=== PATIENT | female | born 1980 | race Caucasian/White ===

== ENCOUNTER 2016-10-27 12:31 | Emergency (ER) | payer BC ==
--- NOTE | 2016-11-02 16:13 | ER ---
ADMIT: 10/27/2016 RM/LOC: ER [facility] MR#: [id number] [id number] [place] [address] Emergency Room Report SEX: F AGE: 36 : 1980 DATE: 10/27/2016 CHIEF COMPLAINT: Ear ache. HISTORY OF PRESENT ILLNESS: This is a pleasant 36-year-old female, who presents with her following a difficult course with a sinus infection for the past 2 weeks. The patient states this initially began as severe allergy symptoms. She saw her inside sales agent, who she regularly sees and actually receives biweekly allergy shots. He started her on a course of prednisone. She states she felt somewhat better and made it through the weekend. On Sunday, she began feeling worse with increased sinus pain and pressure, bilateral earache, cough, and nasal drainage. She went to an urgent care. They started her on a course of Augmentin on Sunday. The patient states she has not had much improvement while on the Augmentin. She was in to see provider at family practice yesterday and was given a Kenalog shot, which she states has improved some of her ear pressure and pain. Today she presents after episodes of nausea, vomiting, and diarrhea in the last couple days, feels like she is under the weather and very weak. She did phone family practice and encouraged her to present to the ER. At present, she complains of a lot of sinus pain especially over the right eye. Denies any fever or chills. She is currently using Augmentin and Singulair. COURSE IN THE EMERGENCY ROOM: The patient was seen and examined. She is afebrile and nontoxic. She is in no acute distress. Ears are significant for some erythema and fluid bilaterally. Throat is slightly erythematous. Nose is certainly edematous. Lot of pain with percussion over the maxillary sinuses, right greater than left. She does have some anterior lymphadenopathy. Chest is clear. I did order fluids today. She received total of 1.5 L. She was given Zofran and Toradol. The patient states she is feeling better. Also, obtained a urine showing no acute infection, but some evidence of dehydration. Urine preg was negative. IMPRESSION: 1. Acute bacterial sinusitis. 2. Nausea and vomiting. 3. Dehydration. ADMIT: 10/27/2016 RM/LOC: ER [facility] MR#: [id number] [id number] [place] [address] Emergency Room Report SEX: F AGE: 36 : 1980 4. History of seasonal allergies. DISPOSITION: Provided the patient with a script for Levaquin 500 mg 1 tab p.o. daily for 7 days. She is to stop the Augmentin, also given a script for Zofran 1 tab sublingually every 8 hours as needed for nausea. She is to start the Levaquin. If she is not improving, she can follow up with Dr. Henry, ENT. Certainly, she can also follow up with the primary care provider in the next few days if she is not improving. I encouraged her to continue pushing fluids. She can use Tylenol or Motrin as needed for pain. Certainly, return with any worsening signs or symptoms. Questions were sought and answered to the best of my ability and to the patient's satisfaction. She was discharged in stable condition. VALERIE Dailey / Karan Olivares MD / kandis JOB #: [id number] CC: Karan Olivares MD, Attending Physician George Loredo MD, Family Physician
== END 2016-10-27 15:15 | disposition home or self-care (01) ==
LOC: ER 12:31
DX: J01.90 Acute sinusitis, unspecified (principal); B96.89 Other specified bacterial agents as the cause of diseases classified elsewhere; E86.0 Dehydration; Z79.899 Other long term (current) drug therapy

== ENCOUNTER → 2016-12-26 | Outpatient (CLI) | payer BC | END | disposition home or self-care (01) | LOC: RAD.S 13:00 | DX: N92.0 Excessive and frequent menstruation with regular cycle (principal); N83.01 Follicular cyst of right ovary ==